=== PATIENT | female | born 1945 | race Native Hawaiian/Other Pacific Islander ===

== ENCOUNTER 2021-08-16 13:32 | Emergency (ER) | payer MEDICARE, SELFPAY ==
--- NOTE | 2021-08-16 13:38 | ED_ITS ---
HPI - Neuro Symptoms/Deficit General: Chief Complaint: Neuro Symptoms/Deficit Stated Complaint: STROKE ALERT Time Seen by Provider: 08/16/21 13:38 Limitations: altered mental status History of Present Illness: Ms. Boone is a 75-year-old lady with somewhat un clear past medical history though per chart review hypertension who presents to the emergency department with strokelike symptoms. Exact timeline of events is somewhat unclear though the patient was just found slumped out of her car in the parking lot of the hospital. The patient initially provides very limited history with estimated NIHSS 29. Review of Systems General: Reports: ROS unobtainable due to medical condition and ROS unobtainable due to mental status PFSH ED PFSH: Medical History Medical history unknown Unknown family medical history Surgical History Surgical history unknown Social History Additional social history: unable to obtain NIH stroke score NIHSS: Level Of Consciousness - 1a: 2 Level Of Consciousness Questions - 1b: Neither Correct Level Of Consciousness Commands - 1c: Neither Correct Best Gaze - 2: Forced Deviation Visual Vaughn - 3: Complete Hemianopia Facial Palsy - 4: Partial Paralysis Motor Arm Right - 5: No Drift Motor Arm Left - 5: No Movement Motor Leg Right - 6: No Drift Motor Leg Left - 6: No Movement Limb Ataxia - 7: Present In One Limb Sensory - 8: Severe To Total Loss Best Language - 9: Severe Aphasia Dysarthia - 10: Severe Dysarthia Extinction And Inattention - 11: 2 Score: Total Score: 29 Physical Exam Const: GENERAL APPEARANCE: lethargic and ill appearing ORIENTATION/CONSCIOUSNESS: Yes lethargic HENMT: COMMON NORMALS: normocephalic HEAD & SCALP: normocephalic OTHER: contusion to l face Eye: COMMON NORMALS: conjunctivae normal CONJUNCTIVA: Yes conjunctivae normal SCLERA: sclerae normal Neck/C-Spine: COMMON NORMALS: supple GENERAL: Yes trachea midline Resp: COMMON NORMALS: normal respiratory effort and clear to auscultation bilaterally AUSCULTATION: clear to auscultation bilaterally Cardio: COMMON NORMALS: regular rate and regular rhythm RATE: regular rate RHYTHM: regular rhythm GI: COMMON NORMALS: Soft to palpation PALPATION: Yes Soft to palpation and No Tenderness to palpation present (GI) PERCUSSION: normal to percussion Extremity: GENERAL: Yes normal exam except as noted and No edema Neuro: SENSORIUM/ORIENTATION: Yes Orientation impaired and Yes lethargic OTHER: NIHSS 29 initially Course ED course: - Patient was seen and evaluated by me at bedside - Patient placed on cardiac monitors, IV access obtained - Initial evaluation notable for exam as above - Patient brought to CT scanner and no obvious hemorrhage was noted on my interpretation. - Shortly after return to ED room patient did have some improvement in mental status new NIHSS 21. Mentation improved, patient arouses to minor stimuli, she is able to answer month and age as well as blink and squeeze hands. There is still forced right-sided gaze preference. Likely hemianopia. There is left- sided facial paralysis. The patient has both absence of sensation and any motor function on left upper and lower extremities. There is minor tremor limiting assessment of ataxia. Patient does have extinction associated with the shannon- loss of sensation. She does have aphasia/dysarthric speech which is mild to moderate. - Labs notable for normal glucose. No leukocytosis, normal hemoglobin. Metabolic panel without acute derangement to explain symptoms. - Case was discussed with neurologist who, after review of imaging and conjugation with clinical history despite some amount of uncertainty and exact time of onset, recommends TPA. There was a short delay before actual TPA order was placed however I did verbally discussed with charge nurse need for administration prior to order being placed. I did discuss the risks and benefits of TPA with the patient. I do believe, to the best of my ability to determine, that the patient does have understanding and can reasonably make informed choices. Additionally, shortly after it was ordered I did speak with the patient's daughter who is DPOA who was also agreeable with plan. - Upon clarification with multiple healthcare providers patient was last known definitively normal 45 minutes to 1 hour prior to presenting to the emergency department. - Imaging subsequently notable for likely carotid dissection as reason for symptoms. - Patient requires transfer for potential vascular intervention not available at our facility - Upon serial reexamination after treatment the patient was similar to perhaps mildly improved after TPA administration. -Patient accepted by [facility] in [facility] for emergent intervention. Given critical illness with time critical potential intervention the patient requires air transfer as fastest means necessary/possible at this time. Note: Click bubbles or prepopulated vaughn in note writing are used for assistance with data collection and billing and are inherently more limited than narrative and other text portions of this note. Please use narrative for additional cli nical history and defer to narrative/free test for any case of contradictory information. If information appears in only free text or click bubble it should be considered present or absent as reported. Please contact note pattern chart writer for clarifications of clinical information or contradictory information. MDM is a brief summary, contradictory or erroneous seeming information should be clarified and full note should be reviewed. Vital Signs: Vital signs: Vital Signs Pulse Rate 60 08/16/21 17:13 Respiratory Rate 21 H 08/16/21 17:13 Blood Pressure 155/78 08/16/21 17:13 Pulse Oximetry 100 08/16/21 17:13 MDM - Neuro Symptoms/Deficit Medical Decision Making 75-year-old lady presenting with recent onset severe strokelike symptoms. Patient given TPA after discussion with neurology however unfortunately subsequently found to likely have a carotid artery dissection as cause for symptoms. Transferred for additional intervention and treatment. Medical Records I reviewed the patient's medical records. Lab Data I reviewed the patient's lab results. : 08/16/21 14:00 08/16/21 14:00 Radiology Impressions Chest X-Ray 08/16/21 13:40 Impression: Atherosclerosis. Head CT 08/16/21 13:40 IMPRESSION: 1. No evidence of intracranial hemorrhage 2. Prominent dense RIGHT MCA suspicious for occlusion/slow flow. CTA is pending. 3. Subtle developing low-attenuation change RIGHT lentiform nucleus with early loss of marcum-white differentiation. Findings suspicious for subacute ischemia. 4. No significant mass effect or midline shift. 5. Mastoid air cells and paranasal sinuses are well aerated. Notified Rambo Holden MD at 08/16/2021 1:55 PM. Head/Neck CTA 08/16/21 13:40 IMPRESSION: 1. Tapered occlusion of the RIGHT proximal ICA approximately 2 cm from the origin and suspicious for dissection. No flow in the RIGHT ICA to the skull base. No intracranial ICA flow. No flow in the RIGHT MCA extending to the trifurcation and proximal posterior division sylvian branches. 2. Cross-filling of the RIGHT A1 segment with patent anterior communicating artery. 3. Leptomeningeal collateral flow overlying the RIGHT cortex involving the MCA territory. 4. Loss of the normal marcum-white differentiation involving the RIGHT basal ganglia and lentiform nuclei. Thalamus is better preserved. Loss of the RIGHT insular stripe. 5. No significant mass effect or midline shift. 6. No significant LEFT ICA stenosis. LEFT ICA is patent to the skull base. 7. LEFT dominant vertebral artery. Smaller but patent vertebral artery which partially ends in PICA 8. Small but patent basilar artery with dominant anterior circulation. Persi stent bilateral sapphire stylus grinder appear patent. Discussed with Dr. Abisai ZENDEJAS at 08/16/2021 2:[address] 08/16/21 13:46 IMPRESSION: No evidence of acute fracture or dislocation. Laboratory Results WBC 6.1 10^3/uL (4.0-10.0) 08/16/21 14:00 RBC 4.55 10^6/uL (4.1-5.3) 08/16/21 14:00 Hgb 14.8 g/dL (11.5-15.3) 08/16/21 14:00 Hct 45.2 % (37.0-47.0) 08/16/21 14:00 MCV 99.3 fl (81-99) H 08/16/21 14:00 MCH 32.5 pg (28.0-34.0) 08/16/21 14:00 MCHC 32.7 g/dL (30.0-36.0) 08/16/21 14:00 RDW 13.1 % (12.1-15.1) 08/16/21 14:00 Plt Count 228 10^3/cmm (130-400) 08/16/21 14:00 MPV 9.7 fL (7.4-10.4) 08/16/21 14:00 Neut % (Auto) 65.1 % 08/16/21 14:00 Lymph % (Auto) 27.6 % 08/16/21 14:00 [place] % (Auto) 5.3 % 08/16/21 14:00 Eos % (Auto) 1.0 % 08/16/21 14:00 Baso % (Auto) 0.7 % 08/16/21 14:00 Neut # (Auto) 3.96 10^3/uL (1.8-7.7) 08/16/21 14:00 Lymph # (Auto) 1.7 10^3/uL (0.8-4.8) 08/16/21 14:00 [place] # (Auto) 0.3 10^3/uL (0.2-0.9) 08/16/21 14:00 Eos # (Auto) 0.1 10^3/uL (0.0-0.8) 08/16/21 14:00 Baso # (Auto) 0.0 10^3/uL (0.0-0.1) 08/16/21 14:00 Nucleated RBC % (auto) 0 % 08/16/21 14:00 Nucleated RBCs # 0.0 /100WBC 08/16/21 14:00 Specimen Type Arterial 08/16/21 13:50 Sample Site Radial, left 08/16/21 13:50 ABG pH 7.40 (7.35-7.45) 08/16/21 13:50 ABG pCO2 32.3 mmHg (35-45) L 08/16/21 13:50 ABG pO2 88.4 mmHg (80.0-100.0) 08/16/21 13:50 ABG HCO3 20.1 mmol/L (22-26) L 08/16/21 13:50 ABG Base Excess -3.7 mmol/L (-2.0-2.0) L 08/16/21 13:50 Jose Test Pos 08/16/21 13:50 Hematocrit 43.0 % (37-47) 08/16/21 13:50 O2 Delivery Device Room air 08/16/21 13:50 Blower Blast Furnace ID Cak 08/16/21 13:50 Sodium 140 mmol/L (136-145) 08/16/21 14:00 Potassium 3.2 mmol/L (3.5-5.1) L 08/16/21 14:00 Chloride 105 mmol/L (98-107) 08/16/21 14:00 Carbon Dioxide 21 mmol/L (22-29) L 08/16/21 14:00 Anion Gap 17.2 (5-19) 08/16/21 14:00 BUN 10 mg/dL (8-23) 08/16/21 14:00 Creatinine 0.9 mg/dL (0.5-0.9) 08/16/21 14:00 GFR Calculation Not Reportable 08/16/21 14:00 Glucose 117 mg/dL (65-115) H 08/16/21 14:00 POC Glucose 103 mg/dL (70-110) 08/16/21 13:57 Calculated Osmolality 290 mOsm/kg (285-295) 08/16/21 14:00 Calcium 8.9 mg/dL (8.5-10.5) 08/16/21 14:00 Total Bilirubin 0.7 mg/dL (0.15-1.2) 08/16/21 14:00 AST 12 U/L (0-32) 08/16/21 14:00 ALT 9 U/L (0-33) 08/16/21 14:00 Alkaline Phosphatase 74 IU/L (35-105) 08/16/21 14:00 Troponin T Baseline 7 ng/L (0-10) 08/16/21 14:00 Troponin T 120 Minute 7.42 ng/L (0-10) 08/16/21 16:10 Delta Troponin T 0.42 ABS# (0-10) 08/16/21 16:10 Total Protein 7.1 g/dL (6.6-8.7) 08/16/21 14:00 Albumin 4.6 g/dL (3.5-5.2) 08/16/21 14:00 Globulin 2.5 g/dL (1.3-4.6) 08/16/21 14:00 TSH 2.81 uIU/mL (0.27-4.20) 08/16/21 14:00 Salicylates < 0.3 mg/dL (3-10) L 08/16/21 14:00 Acetaminophen < 5.0 ug/mL (10-30) L 08/16/21 14:00 Ethyl Alcohol < 10 mg/dL (0-10) 08/16/21 14:00 Critical Care Time Critical Care Time: Critical Care Time: Yes Total Critical Care Time: 80 Attestation: Due to a high probability of clinically significant, possibly life threatening deterioration, the patient required my highest level of attention and preparedness to intervene emergently and I personally spent this critical care time directly and personally managing the patient. This critical care time included obtaining a history; examining the patient; pulse oximetry; ordering and review of laboratory and imaging studies; arranging urgent treatment with development of a management plan; evaluation of patient's response to treatment; frequent reassessment; and, discussions with other providers as applicable. It was exclusive of separately billable procedures. Primary system involved is neuro/cerebrovascular Discharge Plan Discharge Clinical Impression: Acute right arterial ischemic stroke, middle cerebral artery (MCA), Dissection of right carotid artery, Altered mental status Condition: Stable Prescriptions: No Action Plavix 75 mg Tablet 75 mg PO DAILY 0RF Label Comments: pt states she takes this medication-wilder ortega filled-[facility] view [facility] [phone] wilder states not filled since 2018-called pts pcp [phone] not open- hydrocodone-acetaminophen [[place]] 10-325 mg Tablet 1 tab PO Q8H PRN (Reason: Pain) 0RF Prilosec 40 mg Capsule,Delayed Release(Dr/Ec) 40 mg PO BID 0RF Aspir-81 81 mg Tablet,Delayed Release (Dr/Ec) 81 mg PO DAILY 0RF Ambien 10 mg Tablet 10 mg PO BEDTIME 0RF Referrals: Caron Lee DO [Primary Care Provider] - Coding Level of Care Code ED Steel Wool Machine Operator for Chg Fwd Exam Comprehensive
--- NOTE | 2021-08-16 13:40 | CT_ITS ---
WS: [id number] CT HEAD TECHNIQUE: Noncontrast CT of the head obtained from the skullbase to the vertex. CLINICAL INFORMATION: stroke COMPARISON: None. DLP: All CT scans at [facility] use at least one of these dose optimization techniques: automated e xposure control; mA and/or kV adjustment per patient size (includes targeted exams where dose is matc hed to clinical indication); or iterative reconstruction. FINDINGS: No evidence of intracranial hemorrhage. Prominent dense RIGHT MCA extending to the trifurcation and p roximal sylvian branches suspicious for occlusion/slow flow. CTa is pending. Subtle developing loss o f the normal marcum-white differentiation in the RIGHT periventricular white matter/lentiform nucleus i n the deep RIGHT MCA territory. Small lacunar infarct in the RIGHT caudate age indeterminate. No extra-axial fluid collections. No evidence of mass or mass effect. Normal posterior fossa. Normal mahesh. CT/CT head wo con* [id number] IMPRESSION: 1. No evidence of intracranial hemorrhage 2. Prominent dense RIGHT MCA suspicious for occlusion/slow flow. CTA is pendin g. 3. Subtle developing low-attenuation change RIGHT lentiform nucleus with early loss of marcum-white differentiation. Findings suspicious for subacute ischemia. 4. No significant mass effect or midline shift. 5. Mastoid air cells and paranasal sinuses are well aerated. Notified Rambo Holden MD at 08/16/2021 1:55 PM.
--- NOTE | 2021-08-16 13:40 | CT_ITS ---
WS: [id number] CTA HEAD AND NECK TECHNIQUE: Contrast enhanced CTA of the head and neck with coronal and sagittal reformatted images an d maximum intensity projection (MIP) images. NASCET criteria utilized. CLINICAL INFORMATION: stroke COMPARISON: None. DLP: 1422.[address] scans at [facility] use at least one of these dose optimization techniques: automated e xposure control; mA and/or kV adjustment per patient size (includes targeted exams where dose is matc hed to clinical indication); or iterative reconstruction. FINDINGS: RIGHT: RIGHT common carotid artery is patent. Tapered occlusion of the RIGHT ICA approximately 2 cm f rom the bifurcation suspicious for dissection. No flow in the RIGHT cervical ICA to the skull base. N o intracranial ICA flow. No flow in the RIGHT MCA extending to the trifurcation and proximal sylvian branches. Cross filling of the RIGHT A1 segment. Patent anterior communicating artery. Leptomeningea l collaterals supply some flow to the cortical RIGHT MCA territory. LEFT: LEFT common carotid artery is patent. Moderate atheromatous plaque LEFT carotid bulb extending into the ICA. No significant LEFT ICA stenosis. LEFT ICA is patent to the skull base. Mild cavernous carotid calcification. Tiny patent anterior communicating artery. Normal vascularity to the LEFT MCA territory. INTRACRANIAL CTA: LEFT dominant vertebral artery. Tiny but patent RIGHT vertebral artery which partially partially ends in PICA. Diminutive but patent basilar artery with dominant anterior circulation. Patent posterior c ommunicating arteries bilaterally. Normal vascularity to the SOLAR PHOTOVOLTAIC DESIGNER territory bilaterally. Paranasal sinuses and mastoid air cells well aerated. Lung apices are well aerated. Normal partially visualized aortic arch. CT/CT angio headneck* [id number] IMPRESSION: 1. Tapered occlusion of the RIGHT proximal ICA approximately 2 cm from the donato gin and suspicious for dissection. No flow in the RIGHT ICA to the skull base. No intracranial ICA flow. No flow in the RIGHT MCA extending to the trifurcatio n and proximal posterior division sylvian branches. 2. Cross-filling of the RIGHT A1 segment with patent anterior communicating ar meghann. 3. Leptomeningeal collateral flow overlying the RIGHT cortex involving the MCA territory. 4. Loss of the normal marcum-white differentiation involving the RIGHT basal ernesto glia and lentiform nuclei. Thalamus is better preserved. Loss of the RIGHT insu lar stripe. 5. No significant mass effect or midline shift. 6. No significant LEFT ICA stenosis. LEFT ICA is patent to the skull base. 7. LEFT dominant vertebral artery. Smaller but patent vertebral artery which p artially ends in PICA 8. Small but patent basilar artery with dominant anterior circulation. Persist ent bilateral off premise service representative appear patent. Discussed with Dr. Abisai ZENDEJAS at 08/16/2021 2:44 PM.
--- NOTE | 2021-08-16 13:40 | XR_ITS ---
WS: [id number] Portable AP upright chest, 08/16/2021 Clinical Data: stroke like symptoms Comparison: None. Findings: No nodules, masses or effusions are seen. The heart is normal. The pulmonary vascularity is not increased. No pneumonia or pneumothorax is seen. There are calcified granulomas in the left lowe r lobe. The aortic arch and descending thoracic aorta show mild tortuosity. XR/XR chest 1V portable [id number] Impression: Atherosclerosis.
[2021-08-16 13:41] VITALS: BP 161/78; PULSE 64; RESP 14; O2SAT 99; BMI 19.0
--- NOTE | 2021-08-16 13:41 | ECG_ITS ---
[facility] Test Date: 2021-08-16 Pat Name: Skyla Boone Department: Room: Gender: Female Director Airport Operations: : 1945 Requested By: Rambo Holden Order Number: [id number] William MD: Dayna Ruggiero M.D. Measurements Intervals [place] Rate: 57 P: 38 UT: 144 QRS: 38 QRSD: 73 T: 5 QT: 411 QTc: 401 Interpretive Statements SINUS BRADYCARDIA NONSPECIFIC T-WAVE ABNORMALITY Compared to ECG 05/11/2017 18:18:36 T-wave abnormality now present Sinus rhythm no longer present Electronically Signed On 08-17-2021 8:32:18 FORMAL SERVICE WAITER by Dayna Ruggiero M.D. [id number]
--- NOTE | 2021-08-16 13:46 | CT_ITS ---
WS: [id number] CT CERVICAL TRAUMA TECHNIQUE: Noncontrast CT of the cervical spine with coronal and sagittal reformatted images. CLINICAL INFORMATION: R SIDED WEAKNESS COMPARISON: None. DLP: [address] scans at [facility] use at least one of these dose optimization techniques: automated e xposure control; mA and/or kV adjustment per patient size (includes targeted exams where dose is matc hed to clinical indication); or iterative reconstruction. FINDINGS: Straightening of the normal cervical lordosis. Mild spondylitic changes. Disc space narrowing worse a t C4-C5 C5-C6 and C6-C7. Normal craniocervical junction. Normal C1-C2 articulation. Dens is normal in appearance. Normal occipital condyles. No high-grade spinal canal narrowing. Normal C1 ring. No evid ence of acute fracture or dislocation. Normal prevertebral soft tissues. Mastoids air cells are well aerated. CT/CT cervical spin wo con* [id number] IMPRESSION: No evidence of acute fracture or dislocation.
[2021-08-16 14:00] LABS: Glucose Point of Care 103 mg/dL (70-110)
[2021-08-16 14:02] LABS: ABG PCO2 32.3 mmHg (35-45); Base Excess ABG -3.7 mmol/L (-2.0-2.0); Blood Gas Allen Test Pos; Blood Gas Operator Identificat CAK; Blood Gas Sample Site Radial, left; Blood Gas Sample Type Arterial; HCO3 ABG 20.1 mmol/L (22-26); Oxygen Device ROOM AIR; PO2 ABG 88.4 mmHg (80.0-100.0)
[2021-08-16 14:03] LABS: Basophils % 0.7 %; Eosinophils # 0.1 10^3/uL (0.0-0.8); Hematocrit 45.2 % (37.0-47.0); Hemoglobin 14.8 g/dL (11.5-15.3); Lymphocytes # 1.7 10^3/uL (0.8-4.8); Lymphocytes % 27.6 %; Mean Corpuscular HGB Conc 32.7 g/dL (30.0-36.0); Mean Corpuscular Hemoglobin 32.5 pg (28.0-34.0); Mean Corpuscular Volume 99.3 fl (81-99); Mean Platelet Volume 9.7 fL (7.4-10.4); Monocytes # 0.3 10^3/uL (0.2-0.9); Monocytes % 5.3 %; Neutrophils # 3.96 10^3/uL (1.8-7.7); Neutrophils % 65.1 %; Nucleated Red Blood Cells % 0 %; Platelet Count 228 10^3/cmm (130-400); Red Blood Count 4.55 10^6/uL (4.1-5.3); Red Cell Distribution Width 13.1 % (12.1-15.1); White Blood Count 6.1 10^3/uL (4.0-10.0)
[2021-08-16] MEDS: iodixanol 320 mg/mL 100mL Btl IV (14:13)
[2021-08-16 14:25] LABS: Troponin(5th) Baseline 7 ng/L (0-10)
--- NOTE | 2021-08-16 14:55 | PC.PHAR ---
pt states she takes care of her own medications-pt states she takes plavix 75mg daily-wilder ortega filled-[facility] view ar [phone] wilder states not filled since 2018-called pts pcp [phone] not open-pt gets norco 10-325mg 1 tab q8h prn from a dr from [facility] ar-pt states she takes a 81mg aspirin everyday-notes are made in the pharmacy comments
[2021-08-16 15:01] LABS: Alanine Aminotransferase 9 U/L (0-33); Albumin Level 4.6 g/dL (3.5-5.2); Alkaline Phosphatase 74 IU/L (35-105); Aspartate Amino Transferase 12 U/L (0-32); Blood Urea Nitrogen 10 mg/dL (8-23); Calcium 8.9 mg/dL (8.5-10.5); Carbon Dioxide 21 mmol/L (22-29); Globulin 2.5 g/dL (1.3-4.6); Glucose 117 mg/dL (65-115); Thyroid Stimulating Hormone 2.81 uIU/mL (0.27-4.20); Total Bilirubin 0.7 mg/dL (0.15-1.2); Total Protein 7.1 g/dL (6.6-8.7)
[2021-08-16 15:02] LABS: Acetaminophen < 5.0 ug/mL (10-30); Alcohol Level < 10 mg/dL (0-10); Salicylate < 0.3 mg/dL (3-10)
[2021-08-16 15:11] LABS: Anion Gap 17.2 (5-19); Chloride 105 mmol/L (98-107); Osmolality Calculated 290 mOsm/kg (285-295); Potassium 3.2 mmol/L (3.5-5.1); Sodium 140 mmol/L (136-145)
[2021-08-16 17:13] VITALS: BP 155/78; PULSE 60; RESP 21; O2SAT 100
[2021-08-16 17:20] LABS: Troponin 5 2HR 7.42 ng/L (0-10)
[2021-08-16 17:33] LABS: Troponin 5 2HR Delta 0.42 ABS# (0-10)
--- NOTE | 2021-08-17 10:47 | PM.SAN ---
Stroke Alert Activation ED Arrival Date: 08/16/21 ED Arrival Time: 13:41 ED Physican at Bedside: 13:38 Last Known Normal/at Baseline: < 1 hour ago Other Last Known Well Infomation: This was a very confusing story because this patient was found in the parking lot outside of the main entrance where she had fallen. Bystanders alerted hospital personnel who brought her to the emergency room with left-sided weakness. A stroke alert was called even before she arrived and I talked with Dr. Duong and . She was taken straight to CAT scan, where she was seen by Dr. Taylor to have marcum-white matter loss of differentiation consistent with an acute stroke. Dr. Holden attempted to find witnesses. The patient initially was unable to provide very much history although later on she told me that she came to the hospital to see her daughter, who was being discharged after an acute [place]. I talked with Dr. Taylor about the patient's CAT scan findings and by that time he also had access to her CTA and on preliminary review she had right carotid occlusion all the way to M1. I called Dr. Holden and reviewed the patient's NIH stroke scale, the fact that she was not on anticoagulants and that her blood pressure was under control. I asked him to order TPA and the order was given at 1427 which was less than an hour after arrival. Unfortunately Prateek, the nurse, was unable to deliver the bolus until 1455 because he was tied up with other patients. I arrived a short time later. I examined the patient and found that she had a strong gaze preference to the right, dense left hemiparesis, dense left hemineglect but she did have sensation on the left side (any stimulation of the left side she identified as being on the right side). She had dysarthric speech but was able to communicate. She was able to tell me that she came to the hospital this morning from [facility] after she made coffee and sat at her kitchen table to drink the coffee before she left for the hospital. She estimated that she arrived at the hospital around 10:00 and visited with her daughter on first floor. I later found witnesses who documented that she was on the first floor this morning and that was in keeping with her onset of symptoms less than an hour from arrival here. I asked that she be transferred on the chance that she could have a stent and what appeared to be a right carotid dissection or potential embolectomy of the clot extending all the way to M1, as she still has a very high NIH stroke scale and was a very much functioning person prior to this event. Stroke Alert Activated by: I am not sure. The quick print operator called the stroke alert after medical personnel found the patient down in the parking lot. Stroke Alert Activation Date: 08/16/21 Stroke Alert Activation Time: 13:30 Stroke MD @ Bedside Time: 13:30 NIH Stroke Scale Time: 15:30 NIH stroke score NIHSS: Level Of Consciousness - 1a: 0 Level Of Consciousness Questions - 1b: Both Correct Level Of Consciousness Commands - 1c: Both Correct Best Gaze - 2: Forced Deviation Visual Vaughn - 3: Complete Hemianopia Facial Palsy - 4: Partial Paralysis Motor Arm Right - 5: No Drift Motor Arm Left - 5: No Movement Motor Leg Right - 6: No Drift Motor Leg Left - 6: No Movement Limb Ataxia - 7: Absent Sensory - 8: Normal (Probably normal. She identified touch on the left side as being on the right.) Best Language - 9: No Aphasia Dysarthia - 10: Mild/Moderate Dysarthia Extinction And Inattention - 11: 2 Score: Total Score: 17 Stroke Alert Data/Treatment Time to CT of Head: 13:41 CT Results Time: 14:06 CT Impression: 1.? No evidence of intracranial hemorrhage 2.? Prominent dense RIGHT MCA suspicious for occlusion/slow flow. CTA is pending. 3.? Subtle developing low-attenuation change RIGHT lentiform nucleus with early loss of marcum-white differentiation. Findings suspicious for subacute ischemia. 4.? No significant mass effect or midline shift. 5.? Mastoid air cells and paranasal sinuses are well aerated. ? ? Notified Rambo Holden MD at 08/16/2021 1:55 PM. Signed By: Jamie Taylro MD Signed Date/Time: 08/16/21? Stroke Risk Factors: hypertension tPA Started Date: 08/16/21 tPA Started Time: tPA Started - Time: 14:55 (Ordered at 1427) tPA Admin Prior to Arrival: No Patient & Family Educated on: Treament Plan and tPA Risks/Benefits Other Patient & Family Education: I took care of this patient by telemetry stroke from the time of her arrival. I communicated repeatedly with Dr. Taylor and Dr. Holden and saw the patient prior to transfer. Other Information: Transferred to [facility] neuro intervention Critical Care Time Critical Care Time: 30 - 74 mins A&P Assessment and plan (1) Dissection of right carotid artery: The patient presented with acute occlusion and decreased flow in the right middle cerebral artery. Initially it appeared that she had a right carotid occlusion. Further evaluation of the lesion suggests it is probably a carotid dissection. The patient was questioned closely and she did not take a fall or do anything strenuous this morning that would have led to carotid dissection. We are hopeful that she had procedural treatment at [facility] with improved resolution as she is a very pleasant lady. Before she was transferred she had some bleeding from the mouth and it appears that she bit her tongue when she fell. Status: Acute (2) Acute right arterial ischemic stroke, middle cerebral artery (MCA): Status: Acute Coding Level of Care Code Acute Slide Machine Tender for Nikos Mi Diagnoses Dissection of right carotid artery I77.71 Acute right arterial ischemic stroke, middle cerebral artery (MCA) I63.511
== END 2021-08-16 17:18 ==
PROVIDERS: Emergency Provider Emergency Medicine; PCP Family Medicine
DX: I63.9 Cerebral infarction, unspecified (principal); I77.71 Dissection of carotid artery; Z79.82 Long term (current) use of aspirin; Z79.02 Long term (current) use of antithrombotics/antiplatelets; R29.729 NIHSS score 29; I10 Essential (primary) hypertension
CPT/HCPCS: 36416; 36600; 51702; 70450; 70496; 70498; 71045; 72125; 80053; 80307; 82803; 82962; 84443; 84484; 85025; 93005; 96374; 99285; J2997; Q9967